=== PATIENT | male | born 2005 | race Caucasian/White ===

== ENCOUNTER 2023-09-16 07:51 | Emergency (ER) | payer OTHER ==
[~2023-09-16] VITALS: Ht 165.1 cm; Wt 57.0 kg
[2023-09-16] MEDS: ACETAMINOPHEN TAB 650MG DOSE (2X325MG) PO ONE (09:43)
[2023-09-16 10:53] LABS: RSV AMPLIFICATION NEGATIVE (NEGATIVE)
[2023-09-16] MEDS ORDERED: BENZ200C70 PO (11:24)
[2023-09-16 11:37] VITALS: BP 113/77; TEMP 97.6; O2SAT 90
== END 2023-09-16 12:14 | disposition home or self-care (01) ==
LOC: M ED 07:51
DX: J06.9 Acute upper respiratory infection, unspecified (principal); R05.9 Cough, unspecified